=== PATIENT | male | born 1945 | race Caucasian/White ===

== ENCOUNTER 2024-10-24 13:39 | Inpatient (IN) | payer OTHER ==
[~2024-10-24] VITALS: Ht 182.9 cm; Wt 50.0 kg
[2024-10-24] MEDS ORDERED: TAMS0.4C94 PO (14:19)
[2024-10-24] MEDS ORDERED: LEVO-108 PO (14:19)
[2024-10-24] MEDS ORDERED: ALBU2.5V39 NEB (14:19)
[2024-10-24] MEDS ORDERED: TRAM50TA5 PO (14:19)
[2024-10-24] MEDS ORDERED: LEVE100023 PO (14:19)
[2024-10-24] MEDS ORDERED: ATOR40TA71 PO (14:19)
[2024-10-24] MEDS ORDERED: PANT-31 PO (14:19)
[2024-10-24 14:26] LABS: BASOPHILS % (AUTO) 0.8 % (0.0-2.0); HEMATOCRIT 28.1 % (41-53); LYMPHOCYTES # (AUTO) 1.5 K/uL (1.0-4.8); LYMPHOCYTES % (AUTO) 20.5 % (22.0-44.0); MEAN CORPUSCULAR HEMOGLOBIN 30.7 pg (26.0-34.0); MEAN CORPUSCULAR HGB CONC 32.1 G/dL (31.0-37.0); MEAN CORPUSCULAR VOLUME 95 fL (80-100); MONOCYTES # (AUTO) 0.5 K/uL (0.1-1.0); MONOCYTES % (AUTO) 7.3 % (2.0-9.0); NEUTROPHILS # (AUTO) 4.8 K/uL (1.8-7.7); NEUTROPHILS % (AUTO) 64.4 % (40.0-70.0); PLATELET COUNT (AUTO) 257 K/uL (150-450); RED BLOOD CELL COUNT(AUTO) 2.95 MIL/uL (4.50-5.90); RED CELL DISTRIBUTION WIDTH 14.6 % (11.5-14.5); WHITE BLOOD COUNT (AUTO) 7.5 K/uL (4.5-11.0)
[2024-10-24 14:46] LABS: ALBUMIN 2.7 g/dL (3.4-5.0); BILIRUBIN,TOTAL 0.3 mg/dL (0.1-1.0); POTASSIUM 5.3 mmol/L (3.5-5.1); TOTAL PROTEIN, SERUM 6.3 g/dL (6.4-8.2)
[2024-10-24 14:54] LABS: CALCIUM, TOTAL 8.9 mg/dL (8.8-10.5); CREATININE 2.05 mg/dL (0.60-1.30)
[2024-10-24 14:56] LABS: BILIRUBIN,DIRECT 0.1 mg/dL (0.00-0.20)
[2024-10-24 15:25] LABS: APPEARANCE,URINE CLEAR (CLEAR); BILIRUBIN,URINE NEGATIVE (NEGATIVE); COLOR,URINE LIGHT YELLOW (YELLOW); GLUCOSE, URINE (UA) NEGATIVE (NEGATIVE); KETONES,URINE NEGATIVE (NEGATIVE); LEUKOCYTE ESTERASE ,URINE SMALL (NEGATIVE); NITRATE,URINE NEGATIVE (NEGATIVE); OCCULT BLOOD,URINE LARGE (NEGATIVE); PH,URINE 6.5 (5.0-8.0); PROTEIN,URINE 30-70 mg/dL (NEGATIVE); SPECIFIC GRAVITIY, URINE 1.016 (1.003-1.030); UROBILINOGEN,URINE <=1.0 mg/dL (<=1.0)
[2024-10-24 15:41] LABS: WBC,URINE 26-50 /HPF (0-5)
[2024-10-24 15:42] LABS: BACTERIA,URINE Few /HPF (None Seen); SQUAMOUS EPITHELIAL CELL,UR Rare /LPF (None Seen)
[2024-10-24] MEDS: *CLINICAL-CEFEPIME DOSING CLINICAL ONE (18:09)
[2024-10-24] MEDS ORDERED: 0.9% SODIUM CHLORIDE 10 ML SYRINGE IVP PRN (18:15)
[2024-10-24] MEDS: SODIUM ZIRCONIUM CYCLOSILICATE 5 GM POWDER PACKET PO ONE (18:24)
[2024-10-24] MEDS: SODIUM CHLORIDE 0.9% 1,500 ML IV ONE (18:24)
[2024-10-24] MEDS: ACETAMINOPHEN 500 MG TABLET PO ONE (18:48)
[2024-10-24 19:00] LABS: ANION GAP 5 mmol/L (8-16); CALCIUM, TOTAL 8.9 mg/dL (8.8-10.5); CARBON DIOXIDE 26 mmol/L (22-29); CHLORIDE 107 mmol/L (98-107); CREATININE 2.21 mg/dL (0.60-1.30); GLOMERULAR FILTR. RATE CALC 29 mL/min (>60); GLUCOSE,RANDOM 127 mg/dL (70-110); POTASSIUM 5.4 mmol/L (3.5-5.1); SODIUM SERUM 138 mmol/L (136-145); UREA NITROGEN, BLOOD 37 mg/dL (7-18)
[2024-10-24 19:06] LABS: ALANINE AMINOTRANSFERASE 21 U/L (12-78); ALBUMIN 2.7 g/dL (3.4-5.0); ALKALINE PHOSPHATASE 69 U/L (46-116); ASPARTATE AMINOTRANSFERASE 19 U/L (15-37); BILIRUBIN,TOTAL 0.3 mg/dL (0.1-1.0); LACTATE DEHYDROGENASE 199 U/L (85-227); TOTAL PROTEIN, SERUM 6.5 g/dL (6.4-8.2)
[2024-10-24] MEDS ORDERED: ALBUTEROL SULFATE 2.5 MG/0.5 ML NEB SOLUTION NEB PRN (20:00)
[2024-10-24] MEDS ORDERED: ONDANSETRON HCL 4 MG/2 ML VIAL IVP PRN (20:00)
[2024-10-24 21:21] VITALS: BP 101/45; PULSE 50; RESP 20; TEMP 97.7; O2SAT 98
[2024-10-24 22:30] VITALS: BP 110/57; RESP 20; O2SAT 96
[2024-10-24] MEDS: DOCUSATE SODIUM 100 MG CAPSULE PO SCH (22:39)
[2024-10-24] MEDS: LevETIRAcetam 500 MG TABLET PO SCH (22:39)
[2024-10-24] MEDS: CALCIUM GLUCONATE 100 MG/ML 10 ML IVP ONE (22:39)
[2024-10-24] MEDS: ATORVASTATIN CALCIUM 40 MG TABLET PO SCH (22:39)
[2024-10-24] MEDS: ACETAMINOPHEN 325 MG TABLET PO PRN (22:41)
[2024-10-24] MEDS: HEPARIN SODIUM,PORCINE 5,000 UNITS/ML VIAL SQ SCH (22:51)
[2024-10-25] MEDS ORDERED: HEPARIN SODIUM,PORCINE 5,000 UNITS/ML VIAL SQ SCH
[2024-10-25] MEDS: CEFEPIME HCL 1 GM in DEXTROSE 5%-WATER 50 ML IV SCH (00:15)
[2024-10-25] MEDS ORDERED: SODIUM CHLORIDE 0.9% 500 ML IV ONE (00:18)
[2024-10-25] MEDS: TraMADol HCL 50 MG TABLET PO PRN (04:22)
[2024-10-25] MEDS: SODIUM POLYSTYRENE SULFONATE 15 GM/60 ML SUSPENSION BOTTLE PO ONE (04:26)
[2024-10-25 04:52] VITALS: BP 102/38; PULSE 52; RESP 18; TEMP 98.6; O2SAT 94
[2024-10-25] MEDS: LEVOTHYROXINE SODIUM 50 MCG TABLET PO SCH (06:03)
[2024-10-25 07:52] VITALS: BP 96/47; PULSE 60; RESP 18; TEMP 98.1; O2SAT 98
[2024-10-25] MEDS: PANTOPRAZOLE SODIUM 40 MG DR TABLET PO SCH (08:14)
[2024-10-25 08:59] LABS: BASOPHILS % (AUTO) 0.8 % (0.0-2.0); EOSINOPHILS % (AUTO) 11.1 % (1.0-6.0); HEMATOCRIT 29.2 % (41-53); HEMOGLOBIN 9.4 g/dL (13.5-17.5); LYMPHOCYTES # (AUTO) 1.2 K/uL (1.0-4.8); LYMPHOCYTES % (AUTO) 19.9 % (22.0-44.0); MEAN CORPUSCULAR HEMOGLOBIN 30.8 pg (26.0-34.0); MEAN CORPUSCULAR HGB CONC 32.3 G/dL (31.0-37.0); MEAN CORPUSCULAR VOLUME 95 fL (80-100); MONOCYTES # (AUTO) 0.6 K/uL (0.1-1.0); MONOCYTES % (AUTO) 9.6 % (2.0-9.0); NEUTROPHILS # (AUTO) 3.6 K/uL (1.8-7.7); NEUTROPHILS % (AUTO) 58.6 % (40.0-70.0); PLATELET COUNT (AUTO) 264 K/uL (150-450); RED BLOOD CELL COUNT(AUTO) 3.06 MIL/uL (4.50-5.90); RED CELL DISTRIBUTION WIDTH 14.6 % (11.5-14.5); WHITE BLOOD COUNT (AUTO) 6.1 K/uL (4.5-11.0)
[2024-10-25 09:09] LABS: CALCIUM, TOTAL 8.2 mg/dL (8.8-10.5); CREATININE 1.94 mg/dL (0.60-1.30); MAGNESIUM 2.1 mg/dL (1.80-2.40); POTASSIUM 4.5 mmol/L (3.5-5.1)
[2024-10-25] MEDS: SODIUM CHLORIDE 0.9% 500 ML IV ONE (12:59)
[2024-10-25] MEDS: LOPERAMIDE HCL 2 MG CAPSULE PO ONE (12:59)
[2024-10-25 14:02] VITALS: BP 99/54; PULSE 57; RESP 17; TEMP 98; O2SAT 98
[2024-10-25 16:22] LABS: C.DIFF GDH ANTIGEN, Stool Negative (Negative); C.DIFF TOXINS A&B, Stool Negative (Negative)
[2024-10-25] MEDS: SODIUM CHLORIDE 0.9% 1,000 ML IV SCH (16:37)
[2024-10-25] MEDS: MIDODRINE HCL 2.5 MG TABLET PO SCH (16:37)
[2024-10-25 17:22] VITALS: BP 103/60; PULSE 59; RESP 17; TEMP 98.1; O2SAT 99
[2024-10-25 19:15] VITALS: BP 113/40; PULSE 65; RESP 18; TEMP 98.8; O2SAT 98
[2024-10-25 23:15] VITALS: BP 112/50; PULSE 56; RESP 18; TEMP 98.4; O2SAT 97
[2024-10-26 04:17] VITALS: BP 123/49; PULSE 46; RESP 18; TEMP 97.7; O2SAT 98
[2024-10-26 08:04] VITALS: BP 123/53; PULSE 53; RESP 19; TEMP 98.4; O2SAT 100
[2024-10-26 20:17] VITALS: BP 114/45; PULSE 60; RESP 18; TEMP 98.6; O2SAT 98
[2024-10-26] MEDS: FINASTERIDE 5 MG TABLET PO SCH (20:25)
[2024-10-27 04:15] VITALS: BP 97/51; PULSE 52; RESP 18; TEMP 98.8; O2SAT 97
[2024-10-27] MEDS ORDERED: RINGERS SOLUTION,LACTATED 1,000 ML IV ONE (07:09)
[2024-10-27] MEDS: ETHYL ALCOHOL 62% ANTISEPTIC NASAL SANITIZER 0.6 ML AMPUL NASAL ONE (07:44)
[2024-10-27] MEDS: RINGERS SOLUTION,LACTATED 1,000 ML IV ONE (07:44)
[2024-10-27] MEDS: CHLORHEXIDINE GLUCONATE 2% TOWELETTE [2'S/6'S] TP ONE (07:44)
[2024-10-27] MEDS ORDERED: IOHEXOL 240 MG/ML 20 ML VIAL ONE (07:50)
[2024-10-27 08:05] LABS: BASOPHILS % (AUTO) 0.7 % (0.0-2.0); EOSINOPHILS % (AUTO) 7.8 % (1.0-6.0); HEMATOCRIT 33.1 % (41-53); HEMOGLOBIN 10.5 g/dL (13.5-17.5); LYMPHOCYTES # (AUTO) 2.2 K/uL (1.0-4.8); LYMPHOCYTES % (AUTO) 28.9 % (22.0-44.0); MEAN CORPUSCULAR HEMOGLOBIN 30.8 pg (26.0-34.0); MEAN CORPUSCULAR HGB CONC 31.8 G/dL (31.0-37.0); MEAN CORPUSCULAR VOLUME 97 fL (80-100); MONOCYTES # (AUTO) 0.8 K/uL (0.1-1.0); MONOCYTES % (AUTO) 10.6 % (2.0-9.0); PLATELET COUNT (AUTO) 198 K/uL (150-450); RED BLOOD CELL COUNT(AUTO) 3.41 MIL/uL (4.50-5.90); RED CELL DISTRIBUTION WIDTH 14.4 % (11.5-14.5); WHITE BLOOD COUNT (AUTO) 7.6 K/uL (4.5-11.0)
[2024-10-27 08:21] LABS: CALCIUM, TOTAL 8.5 mg/dL (8.8-10.5); CREATININE 1.48 mg/dL (0.60-1.30); POTASSIUM 4.9 mmol/L (3.5-5.1)
[2024-10-27 08:23] LABS: PROTHROMBIN TIME 10.6 SEC (9.4-11.6)
[2024-10-27] MEDS ORDERED: LEVOFLOXACIN 500 MG/D5% WATER 100 ML IV ONE (08:30)
[2024-10-27] MEDS ORDERED: CLINDAMYCIN 600 MG/D5% WATER 50 ML IV ONE (08:30)
[2024-10-27] MEDS ORDERED: FentaNYL CITRATE PF 100 MCG/2 ML VIAL IVP PRN (09:00)
[2024-10-27] MEDS ORDERED: HYDROmorphone HCL 2 MG/ML SYRINGE IVP PRN (09:00)
[2024-10-27] MEDS: TAMSULOSIN HCL 0.4 MG CAPSULE PO SCH (09:55)
[2024-10-27 10:15] VITALS: BP 96/60; PULSE 50; RESP 18; O2SAT 97
[2024-10-27] MEDS ORDERED: LIDOCAINE/PF 2% 5 ML VIAL ONE (12:00)
[2024-10-27] MEDS ORDERED: ONDANSETRON HCL 4 MG/2 ML VIAL ONE (12:00)
[2024-10-27] MEDS ORDERED: 0.9% SODIUM CHLORIDE 10 ML VIAL ONE (12:00)
[2024-10-27] MEDS ORDERED: PROPOFOL 1% 20 ML VIAL IVP ONE (12:00)
[2024-10-27] MEDS ORDERED: DEXAMETHASONE SOD PHOS 4 MG/ML VIAL ONE (12:00)
[2024-10-27] MEDS ORDERED: PHENYLEPHRINE HCL 10 MG/ML VIAL ONE (12:00)
[2024-10-27 15:57] VITALS: BP 107/45; RESP 18; O2SAT 95
[2024-10-27] MEDS: OXYGEN THERAPY IH SCH (20:00)
[2024-10-27 21:00] VITALS: BP 102/50; PULSE 58; RESP 18; O2SAT 97
[2024-10-27 21:16] VITALS: BP 113/50; PULSE 52; RESP 18; TEMP 98.2; O2SAT 96
[2024-10-28 02:50] VITALS: BP 124/50; PULSE 56; RESP 18; TEMP 98; O2SAT 95
[2024-10-28 08:14] VITALS: BP 101/64; PULSE 55; RESP 18; TEMP 98.2; O2SAT 97
[2024-10-28] MEDS ORDERED: FentaNYL CITRATE PF 100 MCG/2 ML VIAL ONE (12:00)
[2024-10-28] MEDS ORDERED: DOCU-385 PO (15:04)
[2024-10-28] MEDS ORDERED: FINA-27 PO (15:05)
[2024-10-28] MEDS ORDERED: MIDO2.5T19 PO (15:07)
[2024-10-28] MEDS ORDERED: TAMS0.4C94 PO (15:09)
[2024-10-28] MEDS ORDERED: ACET-784 PO (15:11)
[2024-10-28 19:10] VITALS: BP 131/60; PULSE 60; RESP 19; TEMP 98.1; O2SAT 96
[2024-10-28] MEDS: LINEZOLID 600 MG TABLET PO ONE (20:01)
[2024-10-29] MEDS ORDERED: LINEZOLID 600 MG TABLET PO SCH (09:00)
== END 2024-10-28 21:10 | DRG 871 ==
LOC: EMS 13:46 → EDH 19:52 → 6N 21:00
PROVIDERS: ADMIT Internal Medicine; ATTEND Internal Medicine
PROC: 4B02XSZ Measurement of Cardiac Pacemaker, External Approach (ICD-10-PCS; 2024-10-27)
PROC: 0TP98DZ Removal of Intraluminal Device from Ureter, Via Natural or Artificial Opening Endoscopic (ICD-10-PCS; principal; 2024-10-27 08:25)
DX: A41.9 Sepsis, unspecified organism (principal); E43 Unspecified severe protein-calorie malnutrition; N39.0 Urinary tract infection, site not specified; N17.9 Acute kidney failure, unspecified; N20.2 Calculus of kidney with calculus of ureter; Z68.1 Body mass index [BMI] 19.9 or less, adult; D64.9 Anemia, unspecified; E87.5 Hyperkalemia; B96.20 Unspecified Escherichia coli [E. coli] as the cause of diseases classified elsewhere; E03.9 Hypothyroidism, unspecified; I10 Essential (primary) hypertension; J44.9 Chronic obstructive pulmonary disease, unspecified; N28.1 Cyst of kidney, acquired; N31.9 Neuromuscular dysfunction of bladder, unspecified; N32.89 Other specified disorders of bladder; N40.1 Benign prostatic hyperplasia with lower urinary tract symptoms; R33.8 Other retention of urine; N20.0 Calculus of kidney; K21.9 Gastro-esophageal reflux disease without esophagitis; Z91.010 Allergy to peanuts; Z95.0 Presence of cardiac pacemaker; Z88.1 Allergy status to other antibiotic agents; Z88.0 Allergy status to penicillin; Z85.07 Personal history of malignant neoplasm of pancreas; Z87.442 Personal history of urinary calculi; Z79.899 Other long term (current) drug therapy; Z88.8 Allergy status to other drugs, medicaments and biological substances
CPT/HCPCS: 71045; 74176; 80048; 80053; 80076; 81001; 83605; 83615; 83690; 83735; 84145; 85025; 85610; 85730; 87040; 87077; 87081; 87086; 87186; 87324; 87449; 89055; 92610; 93005; 96360; 97162; 97530; 99285; J0610; J0692; J1100; J1644; J2405; J2704; J3010; J3490; J7030; J7040; J7060; J7120; Q9966; 36415-L1; 36415-TC; Z7610